=== PATIENT | male | born 1960 | race African-American/Black ===

== ENCOUNTER 2024-03-21 18:32 | Emergency (ER) | payer MEDICAID ==
[~2024-03-21] VITALS: Ht 175.3 cm; Wt 77.0 kg
[2024-03-21 18:37] VITALS: BP 138/74; PULSE 92; TEMP 98.4; O2SAT 98
[2024-03-21] MEDS: BACITRACIN ZINC OINT UDPKT TOP NR (19:40)
[2024-03-21 19:45] VITALS: RESP 18
== END 2024-03-21 19:46 | disposition home or self-care (01) ==
LOC: ER 18:32
DX: S80.01XA Contusion of right knee, initial encounter (principal); V13.4XXA Pedal cycle driver injured in collision with car, pick-up truck or van in traffic accident, initial encounter; Y93.55 Activity, bike riding; Y92.89 Other specified places as the place of occurrence of the external cause; Y99.8 Other external cause status
CPT/HCPCS: 73560; 99283; Z7610